=== PATIENT | male | born 1975 ===

== ENCOUNTER 2022-03-31 13:06 | Emergency (ER) | payer OTHER ==
[~2022-03-31] VITALS: Ht 177.8 cm; Wt 83.9 kg
[~2022-03-31 13:06] MED LIST: Ativan1 MG PO; CYCL10 PO; METO10 PO; MIRALAX119 GM PO
== END 2022-03-31 16:35 | disposition home or self-care (01) ==
LOC: ER 13:06
DX: M20.011 Mallet finger of right finger(s) (principal); Z87.891 Personal history of nicotine dependence
CPT/HCPCS: 73130

== ENCOUNTER 2024-05-15 20:07 | Emergency (ER) | payer OTHER ==
[~2024-05-15] VITALS: Ht 182.9 cm; Wt 81.7 kg
[~2024-05-15 20:07] MED LIST changes: +ACET500 PO; +BENADRYL25 MG PO; +DOCU100 PO; +OXAYDO5 M1 PO; +Robaxin750 MG PO
[2024-05-15] MEDS ORDERED: Ketorolac Tromethamine 30mg Vial IM ONE (21:05)
[2024-05-15 21:31] LABS: CORONAVIRUS COVID-19 AG Negative (NEGATIVE); INFLUENZA A AG Negative (NEGATIVE); INFLUENZA B AG Negative (NEGATIVE)
[2024-05-15] MEDS ORDERED: Ibuprofen 600 MG Tab PO ONE (22:10)
[2024-05-15] MEDS ORDERED: Acetaminophen 500 MG Tab PO ONE (22:10)
[2024-05-15] MEDS ORDERED: Ondansetron 8 MG SoluTab SL ONE (22:10)
[2024-05-15] MEDS ORDERED: ONDA4 PO (22:15)
[2024-05-15] MEDS ORDERED: IBUP600 PO (22:15)
[2024-05-15] MEDS ORDERED: ACET500 PO (22:15)
[2024-05-15 22:39] VITALS: BP 148/80
== END 2024-05-15 22:27 | disposition home or self-care (01) ==
LOC: ER 20:07
PROVIDERS: Physician Assistant
DX: R07.89 Other chest pain (principal); Z87.891 Personal history of nicotine dependence; Z79.899 Other long term (current) drug therapy
CPT/HCPCS: 71046; 87428-QW; 93005; 93010; 99284-25; A9270; J1885